=== PATIENT | female | born 1970 | race African-American/Black ===

== ENCOUNTER 2017-02-17 22:25 | Observation (INO) | payer OTHER ==
[~2017-02-17] VITALS: Ht 172.7 cm; Wt 97.1 kg
[2017-02-17 23:16] LABS: HEMATOCRIT 44.5 % (36.0-46.0); MCH 29.3 PG (29.0-34.0); MCHC 32.4 G/DL (30.0-36.0); MCV 90.4 FL (83-99); MEAN PLAT.VOLUME 8.5 uM^3 (9.5-12.4); PLATELET COUNT 278 K/uL (156-360); RBC DIS.WIDTH-SD 43.2 % (39-53); RED BLOOD COUNT 4.92 M/uL (3.80-5.20); WHITE BLOOD COUNT 10.6 K/uL (4.1-10.2)
[2017-02-17 23:26] LABS: CHLORIDE 104 mEq/L (99-109); POTASSIUM 4.1 mEq/L (3.7-5.4); SODIUM 135 mEq/L (136-147)
[2017-02-17 23:28] LABS: GLUCOSE 81 mg/dL (70-99)
[2017-02-17 23:30] LABS: ANION GAP 7 MEQ/L (2-14)
[2017-02-17 23:32] LABS: GFR ESTIMATE (CALCULATED) > 59 mL/min/
[2017-02-17 23:33] LABS: UREA NITROGEN (BUN) 10 mg/dL (9-23)
[2017-02-17 23:38] LABS: TROP-I INTERPRETATION NEGATIVE; TROPONIN-I < 0.01 ng/mL (0.0-0.30)
[2017-02-18] MEDS ORDERED: BIOTIN1000 MICRO PO (01:17)
[2017-02-18] MEDS ORDERED: COLACE100 MG PO (01:17)
[2017-02-18 02:47] VITALS: BP 113/68
[2017-02-18 05:53] LABS: TROP-I INTERPRETATION NEGATIVE; TROPONIN-I < 0.01 ng/mL (0.0-0.30)
[2017-02-18 07:45] VITALS: BP 115/71
[2017-02-18 11:50] VITALS: BP 103/55
[2017-02-18 12:19] LABS: TROP-I INTERPRETATION NEGATIVE; TROPONIN-I < 0.01 ng/mL (0.0-0.30)
== END 2017-02-18 12:42 | disposition home or self-care (01) ==
LOC: EME 22:25 → EDOF 02-18 01:30 → 5WEST 02-18 02:32
PROVIDERS: Emergency Medicine; Family Medicine
DX: R07.89 Other chest pain (principal); Z86.718 Personal history of other venous thrombosis and embolism; M54.10 Radiculopathy, site unspecified; R06.02 Shortness of breath; Z86.711 Personal history of pulmonary embolism
CPT/HCPCS: 71020; 71275; 80048; 84484; 85027; 85379; 93005; 99281; 99285; G0378; J1650